=== PATIENT | female | born 1985 | race Asian ===

== ENCOUNTER 2018-12-26 21:06 | Emergency (ER) | payer OTHER ==
[2018-12-26] MEDS ORDERED: NA CHLORIDE 0.9% 1,000 ML ONE (21:42)
[2018-12-26 22:01] LABS: Absolute Lymphocytes (CBC) 2.5 K/uL (0.7-4.9); Absolute Monocytes 0.4 K/uL (0.1-1.3); Absolute Neutrophil 3.4 K/uL (1.8-8.0); Basophils % 0.3 % (0-1.3); Eosinophils % 3.4 % (0-4.4); Hematocrit 42.1 % (36.0-45.0); Lymphocytes % 37.6 % (15.3-44.8); MPV 8.6 fL (7.6-11.3); Monocytes % 6.3 % (3.3-12.3); RBC Red Blood Cell Count 4.48 M/uL (3.86-4.86)
[2018-12-26 22:07] LABS: Urine Blood TRACE (NEG); Urine Glucose NEGATIVE (NEG); Urine Protein TRACE (NEG); Urine Specific Gravity >1.030 (1.005-1.030)
--- NOTE | 2018-12-26 23:23 | RAD REPORT ---
EXAM DESCRIPTION: US - TRANSVAG OB - 12/26/2018 11:09 pm CLINICAL HISTORY: VAGINAL BLEEDING COMPARISON: No comparisons FINDINGS: A single gestational sac is seen within the uterus. The sac is abnormally large. Within th e sac is a single pole with crown-rump length of 2.2 cm, correlating to estimated gestational a ge of 9 weeks 0 days. Despite prolonged sonographic observation, demonstrate double cardiac activity. The placenta is not yet developed due to early gestational age. The maternal adnexa and ovaries are within normal limits. Normal Doppler blood flow was demonstrated to both ovaries. IMPRESSION: The findings are compatible with demise.
[2018-12-26 23:35] LABS: BUN Blood Urea Nitrogen 11 mg/dL (7-18); Bicarbonate 25 mmol/L (21-32); Glucose Level 120 mg/dL (74-106); HCG, Quantitative 2362 mIU/mL (1-3); Potassium 3.5 mmol/L (3.5-5.1); Sodium Level 141 mmol/L (136-145)
--- NOTE | 2018-12-26 23:41 | EDPHYS ---
Physician Documentation [facility] Name: Alda Turpin Age: 33 yrs Sex: Female : 1985 Arrival Date: 12/26/2018 Time: 21:10 Bed 6 Private MD: ED Physician Alex Burger HPI: 12/27 07:09 This 33 yrs old Female presents to ER via Ambulatory with complaints of Vaginal tw4 Bleeding, + Preg <12wks. 07:09 The patient presents to the emergency department with abdominal pain. The estimated tw4 gestational age is 12 weeks. course: care: at a clinic. Previous pregnancies: in previous pregnancies patient has had vaginal delivery. Associated signs and symptoms: The patient has no apparent associated signs or symptoms. The patient has not experienced similar symptoms in the past. 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 - Social history:: Smoking status: Patient/guardian denies using tobacco. - Ebola Screening: : Patient negative for fever greater than or equal to 101.5 degrees Fahrenheit, and additional compatible Ebola Virus Disease symptoms Patient denies exposure to infectious person Patient denies travel to an Ebola-affected area in the 21 days before illness onset No symptoms or risks identified at this time. ROS: 12/27 07:09 Constitutional: Negative for fever, chills, and weight loss, Eyes: Negative for injury, tw4 pain, redness, and discharge, Cardiovascular: Negative for chest pain, palpitations, and edema, Respiratory: Negative for shortness of breath, cough, wheezing, and pleuritic chest pain, Abdomen/GI: Negative for abdominal pain, nausea, vomiting, diarrhea, and constipation. : Positive for vaginal bleeding, Negative for injury or acute deformity, small amounts, hematuria, pelvic pain, flank pain. Exam: 07:09 Constitutional: This is a well developed, well nourished patient who is awake, alert, tw4 and in no acute distress. Head/Face: Normocephalic, atraumatic. Chest/axilla: Normal chest wall appearance and motion. Nontender with no deformity. No lesions are appreciated. Cardiovascular: Regular rate and rhythm with a normal S1 and S2. No gallops, murmurs, or rubs. Normal PMI, no JVD. No pulse deficits. Respiratory: Lungs have equal breath sounds bilaterally, clear to auscultation and percussion. No rales, rhonchi or wheezes noted. No increased work of breathing, no retractions or nasal flaring. Abdomen/GI: Soft, non-tender, with normal bowel sounds. No distension or tympany. No guarding or rebound. No evidence of tenderness throughout. Back: No spinal tenderness. No costovertebral tenderness. Full range of motion. 07:09 MS/ Extremity: Pulses equal, no cyanosis. Neurovascular intact. Full, normal range of motion. Neuro: Awake and alert, GCS 15, oriented to person, place, time, and situation. Cranial nerves II-XII grossly intact. Motor strength 5/5 in all extremities. Sensory grossly intact. Cerebellar exam normal. Normal gait. 07:09 : Pelvic Exam: the exam is deferred. Vital Signs: 12/26 21:15 BP 151 / 86; Pulse 126; Resp 18; Temp 98(O); Pulse Ox 100% on R/A; Weight 46 kg (R); ed1 Height 5 ft. 0 in. (152.40 cm); Pain 0/10; 21:40 BP 129 / 72; Pulse 92; Resp 16; Pulse Ox 100% on R/A; Pain 0/10; ak1 23:15 BP 122 / 86; Pulse 89; Resp 16; Temp 98.2; Pulse Ox 100% on R/A; Pain 0/10; ak1 21:15 Body Mass Index 19.81 (46.00 kg, 152.40 cm) ed1 MDM: 21:21 Patient medically screened. tw4 12/27 07:09 Differential diagnosis: inevitable Ab, complete Ab, retained Ab. Data reviewed: vital tw4 signs, nurses notes. Test interpretation: by ED physician or midlevel provider: ultrasund. Counseling: I had a detailed discussion with the patient and/or guardian regarding: the historical points, exam findings, and any diagnostic results supporting the discharge/admit diagnosis. 12/26 21:24 Order name: Quantitative Hcg [facility] 12/26 21:24 Order name: Abo/rh Typing [facility] 12/26 21:24 Order name: Basic Metabolic Panel [facility] 12/26 21:24 Order name: CBC with Diff [facility] 12/26 22:01 Order name: Urine Dipstick--Ancillary (enter results) [facility] 12/26 22:01 Order name: Urine --Ancillary (enter results) [facility] 12/26 21:24 Order name: Urine Test (obtain specimen); Complete Time: 21:40 tw4 12/26 21:24 Order name: IV Saline Lock; Complete Time: 21:40 tw 12/26 21:24 Order name: Labs collected and sent; Complete Time: 21:39 [facility] 12/26 21:24 Order name: NPO; Complete Time: 21:25 [facility] 12/26 23:12 Order name: TRANSVAG OB EDMS 12/26 21:24 Order name: Urine Dipstick-Ancillary (obtain specimen); Complete Time: 21:40 tw4 Administered Medications: 12/26 21:39 Drug: NS 0.9% 1000 ml Route: IV; Rate: 1 bolus; Site: right antecubital; ak1 23:50 Follow up: Response: No adverse reaction; IV Status: Order to discontinue infusion; IV mg2 Intake: 500ml Point of Care Testing: Urine : 21:43 hCG Reading: Positive; ak1 Disposition: 12/26/18 23:40 Discharged to Home. Impression: demise. - Condition is Stable. - Discharge Instructions: Incomplete Miscarriage. - Medication Reconciliation Form, Thank You Letter, Antibiotic Education, Prescription Opioid Use form. - Follow up: Private Physician; When: Upon discharge from the Emergency Department; Reason: If symptoms return, Recheck today's complaints, Continuance of care. - Problem is new. - Symptoms have improved. Signatures: Dispatcher [employer] EDÁngela Ng, RN RN ed1 Heather Forte RN RN ak1 Alex Burger MD MD tw4 Carlos Nova RN RN mg2 Corrections: (The following items were deleted from the chart) 22:19 21:26 OB Complete+US.RAD.BRZ ordered. EDMS EDMS 23:11 22:19 1St Trimest Single 1St Fetus ordered. EDMS EDMS 23:57 23:40 12/26/2018 23:40 Discharged to Home. Impression: demise. Condition is mg2 Stable. Forms are Medication Reconciliation Form, Thank You Letter, Antibiotic Education, Prescription Opioid Use. Follow up: Private Physician; When: Upon discharge from the Emergency Department; Reason: If symptoms return, Recheck today's complaints, Continuance of care. Problem is new. Symptoms have improved. tw4
--- NOTE | 2018-12-26 23:41 | ER ---
Nurse's Notes [facility] Name: Alda Turpin Age: 33 yrs Sex: Female : 1985 Arrival Date: 12/26/2018 Time: 21:10 Bed 6 Private MD: Diagnosis: demise Presentation: 12/26 21:13 Presenting complaint: Patient states: I am and I have had vaginal bleeding ed1 since this afternoon. Transition of care: patient was not received from another setting of care. Onset of symptoms was December 26, 2018. Risk Assessment: Do you want to hurt yourself or someone else? Patient reports no desire to harm self or others. Initial Sepsis Screen: Does the patient meet any 2 criteria? No. Patient's initial sepsis screen is negative. Does the patient have a suspected source of infection? No. Patient's initial sepsis screen is negative. Care prior to arrival: None. 21:13 Method Of Arrival: Ambulatory ed1 21:13 Acuity: ANUSHA 2 ed1 Triage Assessment: 21:15 General: Appears in no apparent distress. Behavior is calm, cooperative. Pain: Denies ed1 pain. : Reports vaginal bleeding that is bright red. 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 - Social history:: Smoking status: Patient/guardian denies using tobacco. - Ebola Screening: : Patient negative for fever greater than or equal to 101.5 degrees Fahrenheit, and additional compatible Ebola Virus Disease symptoms Patient denies exposure to infectious person Patient denies travel to an Ebola-affected area in the 21 days before illness onset No symptoms or risks identified at this time. Screenin:40 Abuse screen: Denies threats or abuse. Denies injuries from another. Nutritional ak1 screening: No deficits noted. Tuberculosis screening: No symptoms or risk factors identified. Fall Risk None identified. Assessment: 21:40 Obstetrical Assessment: General assessment: awake and alert, skin warm and dry, ak1 respirations even and unlabored, Rupture of membranes not noted. Patient reports vaginal spotting that started out as dark "brown" and is not bright red. pt denies pain. 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 . General: Appears in no apparent distress. Behavior is calm, cooperative, appropriate for age. Pain: Denies pain. 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 Gait is steady, Speech is normal. Cardiovascular: No deficits noted. Respiratory: No deficits noted. GI: No signs and/or symptoms were reported involving the gastrointestinal system. : Reports vaginal bleeding that is bright red, brown, light flow, spotty, since this afternoon. EENT: No signs and/or symptoms were reported regarding the EENT system. Derm: No signs and/or symptoms reported regarding the dermatologic system. Musculoskeletal: No signs and/or symptoms reported regarding the musculoskeletal system. 22:29 Reassessment: patient sent to ultrasound per wheelchair. mg2 23:50 Reassessment: provider informed her about the tests and ultrasound. Patient denies pain mg2 at this time. Vital Signs: 21:15 BP 151 / 86; Pulse 126; Resp 18; Temp 98(O); Pulse Ox 100% on R/A; Weight 46 kg (R); ed1 Height 5 ft. 0 in. (152.40 cm); Pain 0/10; 21:40 BP 129 / 72; Pulse 92; Resp 16; Pulse Ox 100% on R/A; Pain 0/10; ak1 23:15 BP 122 / 86; Pulse 89; Resp 16; Temp 98.2; Pulse Ox 100% on R/A; Pain 0/10; ak1 21:15 Body Mass Index 19.81 (46.00 kg, 152.40 cm) ed1 Vitals: 23:56 Heart Tones FHT not done. mg2 ED Course: 21:10 Patient arrived in ED. ag3 21:14 Triage completed. ed1 21:15 Arm band placed on right wrist. ed1 21:21 Alex Burger MD is Attending Physician. tw4 21:25 Heather Forte RN is Primary Nurse. ak1 21:40 Patient has correct armband on for positive identification. Placed in gown. Bed in low ak1 position. Call light in reach. Side rails up X 1. Adult w/ patient. Pulse ox on. NIBP on. Door closed. Warm blanket given. 21:40 Initial lab(s) drawn, by me, sent to lab. Urine collected: clean catch specimen, clear, ak1 Amount Voided: 50mL. Inserted saline lock: 20 gauge in right antecubital area, using aseptic technique. Blood collected. Patient maintains SpO2 saturation greater than 95% on room air. 23:02 Ultrasound completed. Patient tolerated well. lc3 23:12 TRANSVAG OB In Process Unspecified. EDMS 23:55 No provider procedures requiring assistance completed. IV discontinued, intact, mg2 bleeding controlled, No redness/swelling at site. Pressure dressing applied. Administered Medications: 21:39 Drug: NS 0.9% 1000 ml Route: IV; Rate: 1 bolus; Site: right antecubital; ak1 23:50 Follow up: Response: No adverse reaction; IV Status: Order to discontinue infusion; IV mg2 Intake: 500ml Point of Care Testing: Urine : 21:43 hCG Reading: Positive; ak1 Intake: 23:50 IV: 500ml; Total: 500ml. mg2 Outcome: 23:40 Discharge ordered by . shun 23:56 Discharged to home ambulatory, with family. mg2 23:56 Condition: stable 23:56 Discharge instructions given to patient, family, Instructed on discharge instructions, follow up and referral plans. Demonstrated understanding of instructions, follow-up care. 23:57 Patient left the ED. mg2 Signatures: Dispatcher [employer] EDMS Ángela Blankenship, RN RN ed1 Heather Forte, RN RN ak1 Rut Posada Terrence, MD MD tw4 Carlos Nova, JETT RN mg2 Yoly Iraheta ag3
== END 2018-12-26 23:57 | disposition home or self-care (01) ==
LOC: ER 21:06
DX: O02.1 Missed abortion (principal); Z3A.12 12 weeks gestation of pregnancy
CPT/HCPCS: 36415; 76813; 80048; 81003; 81025; 84702; 85025; 86900; 86901; 96360; 96361; 99284; J7030

== ENCOUNTER 2019-01-01 01:35 | Emergency (ER) | payer OTHER ==
--- OUTSIDE RECORDS SUMMARY | 2019-01-01 01:37 | XMS REPORT ---
:1985 [facility] [address] [place] [address] Dr. Landrum [address] [place] [id number] Care Team Providers Name Role Phone Unavailable Unavailable Unavailable Problems This patient has no known problems. Allergies, Adverse Reactions, Alerts This patient has no known allergies or adverse reactions. Medications This patient has no known medications.
--- NOTE | 2019-01-01 02:09 | ER ---
Nurse's Notes [facility] Name: Alda Turpin Age: 33 yrs Sex: Female : 1985 Arrival Date: 01/01/2019 Time: 01:37 Bed 6 Private MD: Diagnosis: Missed ;Incomplete spontaneous without complication Presentation: 01/01 01:56 Presenting complaint: Patient states: Vaginal bleeding x 1 week, states ER visit on lp1 12/26/18 for demise; Patient states scheduled for D\\T\\C on 01/02/19 but about an hour ago states "I felt like my water broke but it was just blood and clots"; Patient states bleeding improved after episode. Transition of care: patient was not received from another setting of care. Onset of symptoms was January 01, 2019 at 01:00. Risk Assessment: Do you want to hurt yourself or someone else? Patient reports no desire to harm self or others. Initial Sepsis Screen: Does the patient meet any 2 criteria? No. Patient's initial sepsis screen is negative. Does the patient have a suspected source of infection? No. Patient's initial sepsis screen is negative. Care prior to arrival: None. 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 - Social history:: Smoking status: Patient/guardian denies using tobacco. - Ebola Screening: : No symptoms or risks identified at this time. - Family history:: not pertinent. - Hospitalizations: : No recent hospitalization is reported. Screenin:04 Abuse screen: Denies threats or abuse. Denies injuries from another. Nutritional lp1 screening: No deficits noted. Tuberculosis screening: No symptoms or risk factors identified. Fall Risk None identified. Assessment: 02:00 Reassessment: Dr. Jensen at bedside to discuss care with patient and ; Patient lp1 demonstrates understanding of care. 02:03 General: Appears in no apparent distress. Behavior is calm, cooperative, appropriate lp1 for age. Pain: Complains of pain in suprapubic area Pain currently is 3 out of 10 on a pain scale. Quality of pain is described as crampy. Neuro: Level of Consciousness is awake, alert, obeys commands, Oriented to person, place, time, situation, Gait is steady, Denies dizziness. Cardiovascular: No deficits noted. Respiratory: Respiratory effort is even, unlabored. GI: Abdomen is non-distended. : Reports vaginal bleeding that is bright red, with clots, moderate flow. EENT: No signs and/or symptoms were reported regarding the EENT system. Derm: Skin is pink, warm \\T\\ dry. Musculoskeletal: No deficits noted. Vital Signs: 01:58 BP 135 / 92; Pulse 104; Resp 16; Temp 98.5(O); Pulse Ox 100% on R/A; Weight 46 kg; lp1 Height 5 ft. 0 in. (152.40 cm); Pain 3/10; 01:58 Body Mass Index 19.81 (46.00 kg, 152.40 cm) lp1 ED Course: 01:37 Patient arrived in ED. ds1 01:39 Prateek Jensen MD is Attending Physician. rn 01:56 Naina Gamez RN is Primary Nurse. lp1 01:58 Triage completed. lp1 02:02 Arm band placed on left wrist. lp1 02:04 Patient has correct armband on for positive identification. lp1 02:04 No provider procedures requiring assistance completed. Patient did not have IV access lp1 during this emergency room visit. Administered Medications: No medications were administered Outcome: 02:09 Discharge ordered by . rn 02:15 Discharged to home ambulatory, with family. lp1 02:15 Condition: good 02:15 Discharge instructions given to patient, Instructed on discharge instructions, follow up and referral plans. Demonstrated understanding of instructions, follow-up care. 02:16 Patient left the ED. lp1 Signatures: WilksYohana baez ds1 Prateek Jensen MD MD rn Niana Gamez RN RN lp1 Corrections: (The following items were deleted from the chart) 02:07 02:03 Neuro: No deficits noted. lp1 lp1
--- NOTE | 2019-01-01 02:10 | EDPHYS ---
Physician Documentation [facility] Name: Alda Turpin Age: 33 yrs Sex: Female : 1985 Arrival Date: 01/01/2019 Time: 01:37 Bed 6 Private MD: ED Physician Prateek Jensen HPI: 01/01 01:54 This 33 yrs old Female presents to ER via Unassigned with complaints of Vaginal rn Bleeding. 01:54 The patient presents with vaginal bleeding that is moderate, with clots. Onset: The rn symptoms/episode began/occurred this morning. Modifying factors: The symptoms are alleviated by nothing, the symptoms are aggravated by nothing. Severity of symptoms: At their worst the symptoms were moderate, in the emergency department the symptoms have improved. The patient has experienced a previous episode. The patient has been recently seen by a physician: The patient has been recently seen at the [facility] Emergency Department. Reports vaginal bleeding for almost 1 week, seen here, diagnosed with , seen at [facility] yesterday and told missed as well, is scheduled for D\T\C tomorrow at [facility], tonight went to bathroom, had abd cramps and passed larger amount of blood and maybe tissue. Now abd cramping and bleeding has improved, just wanted to get checked. Was RH + last visit. Denies chest pain/sob/lightheaded. . 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 - Social history:: Smoking status: Patient/guardian denies using tobacco. - Ebola Screening: : No symptoms or risks identified at this time. - Family history:: not pertinent. - Hospitalizations: : No recent hospitalization is reported. ROS: 01:54 Constitutional: Negative for fever, chills, and weight loss, Cardiovascular: Negative rn for chest pain, palpitations, and edema, Respiratory: Negative for shortness of breath, cough, wheezing, and pleuritic chest pain, Abdomen/GI: + abd cramping Back: Negative for injury and pain, : + vaginal bleeding MS/Extremity: Negative for injury and deformity, Skin: Negative for injury, rash, and discoloration, Neuro: Negative for headache, weakness, numbness, tingling, and seizure. Exam: 01:54 Constitutional: This is a well developed, well nourished patient who is awake, alert, rn and in no acute distress. Head/Face: Normocephalic, atraumatic. Eyes: Normal conjunctivae, not pale Respiratory: No increased work of breathing, no retractions or nasal flaring. Abdomen/GI: soft, non-tender Skin: Warm, dry with normal turgor. Normal color with no rashes, no lesions, and no evidence of cellulitis. MS/ Extremity: Pulses equal, no cyanosis. Neurovascular intact. Full, normal range of motion. Equal circumference. Neuro: Awake and alert, GCS 15, oriented to person, place, time, and situation. Cranial nerves II-XII grossly intact. Motor strength 5/5 in all extremities. Sensory grossly intact. Cerebellar exam normal. Normal gait. Vital Signs: 01:58 BP 135 / 92; Pulse 104; Resp 16; Temp 98.5(O); Pulse Ox 100% on R/A; Weight 46 kg; lp1 Height 5 ft. 0 in. (152.40 cm); Pain 3/10; 01:58 Body Mass Index 19.81 (46.00 kg, 152.40 cm) lp1 MDM: 01:39 Patient medically screened. rn 01:54 Differential diagnosis: inevitable Ab, complete Ab, retained Ab, missed Ab. Data rn reviewed: vital signs, nurses notes, and as a result, I will discharge patient. Counseling: I had a detailed discussion with the patient and/or guardian regarding: the historical points, exam findings, and any diagnostic results supporting the discharge/admit diagnosis, the need for outpatient follow up, to return to the emergency department if symptoms worsen or persist or if there are any questions or concerns that arise at home. ED course: Pt well appearing, does not have symptoms of symptomatic anemia, possibly passed tissue with blood, now abd cramping and bleeding have improved. Offered blood work and repeat u/s, vs f/u with her OB tomorrow for repeat U/S and to reeval need for D\T\C, patient states feels reassured and will just f/u with her OB tomorrow. Told her if passed tissue and repeat u/s shows empty uterus, will not need D\T\C. Return precautions given and understood. All questions answered. . Administered Medications: No medications were administered Disposition: 01/01/19 02:09 Discharged to Home. Impression: Missed , Incomplete spontaneous without complication. - Condition is Stable. - Discharge Instructions: Incomplete Miscarriage, Miscarriage. - Medication Reconciliation Form, Thank You Letter, Antibiotic Education, Prescription Opioid Use form. - Follow up: Private Physician; When: As needed; Reason: Recheck today's complaints, Re-evaluation by your physician. - Problem is an ongoing problem. - Symptoms have improved. Signatures: Prateek Jensen MD MD rn GamezNaina RN RN lp1 Corrections: (The following items were deleted from the chart) 02:16 02:09 01/01/2019 02:09 Discharged to Home. Impression: Missed ; Incomplete lp1 spontaneous without complication. Condition is Stable. Forms are Medication Reconciliation Form, Thank You Letter, Antibiotic Education, Prescription Opioid Use. Follow up: Private Physician; When: As needed; Reason: Recheck today's complaints, Re-evaluation by your physician. Problem is an ongoing problem. Symptoms have improved. rn
== END 2019-01-01 02:16 | disposition home or self-care (01) ==
LOC: ER 01:35
DX: O03.4 Incomplete spontaneous abortion without complication (principal)
CPT/HCPCS: 99281